=== PATIENT | male | born 1945 | race Caucasian/White ===

== ENCOUNTER → 2017-11-29 | Day surgery (SDC) | payer BC ==
[~2017-11-29] MED LIST: LIDOCAINE 1% PF 2 ML VIAL. ID; LIDOCAINE 2% PF Vial for OR 5 ML VIAL.; MIDAZOLAM HCL/PF 2 MG/2 ML VIAL. IV; PROPOFOL 40 ML IV; fentaNYL PF VIAL 100 MCG/2 ML VIAL IV
[2017-11-29] MEDS: IV RINGERS,LACTATED 1000ML 1,000 ML IV (07:14)
== END | disposition home or self-care (01) ==
LOC: ENDOS 05:56
DX: Z12.11 Encounter for screening for malignant neoplasm of colon (principal); K64.0 First degree hemorrhoids; K22.2 Esophageal obstruction; I10 Essential (primary) hypertension; E78.00 Pure hypercholesterolemia, unspecified; M10.9 Gout, unspecified; D51.0 Vitamin B12 deficiency anemia due to intrinsic factor deficiency; Z88.8 Allergy status to other drugs, medicaments and biological substances; Z79.899 Other long term (current) drug therapy; G62.9 Polyneuropathy, unspecified; M17.10 Unilateral primary osteoarthritis, unspecified knee; Z98.890 Other specified postprocedural states
CPT/HCPCS: 43235; 45378; J2704